=== PATIENT | female | born 1980 | race Hispanic/Latino ===

== ENCOUNTER 2016-07-13 08:20 | Observation (INO) | payer SELFPAY ==
[~2016-07-13] VITALS: Ht 162.6 cm; Wt 75.0 kg
[~2016-07-13 08:20] MED LIST: CIPROFLOXACN500 MG PO; KEFLEX500 MG PO; NAPROSYN500 MG PO; NO MEDS; NOND; ULTRAM50 M1 PO; VISTARIL25 MG PO
[2016-07-13 08:46] LABS: HEMATOCRIT 41.4 % (37.0-47.0); HEMOGLOBIN 14.3 g/dl (12.0-16.0); IMMATURE GRANULOCYTES 0.8 % (0.0-1.0); MEAN CELL VOLUME 78.9 fL CALC (80.0-100.0); MEAN CORPUSCULAR HGB 27.2 pG CALC (26.0-32.0); MEAN CORPUSCULAR HGB CONC 34.5 g/L CALC (32.0-36.0); NEUT# 3.29 thou/uL (2.00-7.15); RED BLOOD COUNT 5.25 mill/uL (4.20-5.60); RED CELL DISTRI WIDTH 12.4 % (11.5-15.5)
[2016-07-13 08:56] LABS: ALBUMIN 4.4 g/dL (3.2-5.0); ALKALINE PHOSPHATASE 120 u/l (38-126); ANION GAP 17 (6-22 (CALC)); BILIRUBIN, TOTAL 1.1 mg/dL (0.0-1.4); BUN 9 mg/dL (7-17); BUN/CREATININE RATIO 27 (12-20 (CALC)); CARBON DIOXIDE 23 mmol/l (22-30); CHLORIDE 106 mmol/l (95-108); CREATININE 0.3 mg/dL (0.5-1.0); GFR > 60 ML/MIN (>=60 (CALC)); GFR FOR AFR.AMER. > 60 ML/MIN (>=60 (CALC)); GLUCOSE 263 mg/dL (65-105); POTASSIUM 4.3 mmol/l (3.5-5.1); SGOT/AST 66 u/l (14-36); SGPT/ALT 82 u/l (9-52); SODIUM 141 mmol/l (137-146); TOTAL PROTEIN 7.5 g/dL (6.3-8.2)
[2016-07-13 09:49] LABS: URINE BILIRUBIN - DIPSTICK NEGATIVE (NEGATIVE); URINE BLOOD DIPSTICK TRACE-INTACT (NEGATIVE); URINE CLARITY CLEAR; URINE COLOR YELLOW; URINE GLUCOSE - DIPSTICK 500 mg/dL (NEGATIVE); URINE KETONE NEGATIVE (NEGATIVE); URINE LEUK ESTERASE NEGATIVE (NEGATIVE); URINE NITRITE - DIPSTICK NEGATIVE (Negative); URINE PH 5.5 (4.5-8.0); URINE PROTEIN - DIPSTICK NEGATIVE (NEG-TRACE); URINE UROBILINOGEN - DIPSTICK 0.2 E.U./dL (0.2)
[2016-07-13 12:42] VITALS: BP 132/88
[2016-07-13 16:00] VITALS: BP 138/69
[2016-07-13 19:13] VITALS: BP 130/85
[2016-07-14 04:19] VITALS: BP 111/78
[2016-07-14 07:56] VITALS: BP 112/77
[2016-07-14] MEDS ORDERED: GLUCOPHAGE500 MG PO (09:41)
[2016-07-14] MEDS ORDERED: IBUPROFEN600 MG PO (09:41)
[2016-07-14] MEDS ORDERED: BACLOFEN10 MG PO (09:41)
[2016-07-14] MEDS ORDERED: ATORVASTATIN CA10 MG PO (09:41)
== END 2016-07-14 11:38 | disposition home or self-care (01) | DRG 552 ==
LOC: ENPENDDIS → ED 08:20 → ED-I 10:54 → ED 10:56 → MS2 10:57
PROVIDERS: Emergency Medicine; ADMIT Internal Medicine; ATTEND Internal Medicine
DX: M54.5 Low back pain (principal); E11.65 Type 2 diabetes mellitus with hyperglycemia; N92.6 Irregular menstruation, unspecified
CPT/HCPCS: G0378